=== PATIENT | female | born 1965 | race Two or more races ===

== ENCOUNTER 2018-05-01 13:03 | Day surgery (SDC) | payer OTHER ==
[~2018-05-01] VITALS: Ht 157.5 cm; Wt 84.3 kg
[2018-05-01 13:51] VITALS: Ht 157.5 cm; Wt 84.3 kg
[2018-05-01] MEDS ORDERED: ATORVASTATIN (15:35)
[2018-05-01] MEDS ORDERED: METFORMIN (15:35)
[2018-05-01] MEDS ORDERED: CYCLOBENZAPRINE (15:35)
[2018-05-01] MEDS ORDERED: DULOXETINE (15:35)
[2018-05-01] MEDS ORDERED: ZOLPIDEM TARTRATE (15:35)
[2018-05-01] MEDS ORDERED: METOPROLOL (15:35)
[2018-05-01] MEDS ORDERED: GABAPENTIN (15:35)
[2018-05-01] MEDS ORDERED: PROPANOLOL (15:35)
[2018-05-01] MEDS ORDERED: [UNRECOGNIZED DRUG - CODE] (15:35)
[2018-05-01] MEDS ORDERED: ADVIL (15:35)
[2018-05-01] MEDS ORDERED: MIDAZOLAM 1 MG/ML 2 ML INJ ONE (15:59)
[2018-05-01 16:08] VITALS: BP 161/94; RESP 15
[2018-05-01] MEDS ORDERED: LIDOCAINE 2% (SDV) 5 ML INJ ONE (16:14)
[2018-05-01] MEDS ORDERED: PROPOFOL 60 ML ONE (16:14)
--- NOTE | 2018-05-01 16:14 | PREAC ---
Date/Time of Note Date/Time of Note DATE: 05/01/18 TIME: 16:10 Anesthesia Eval and Record Evaluation Time Pre-Procedure Interview DATE: 05/01/18 TIME: 16:10 Age 52 Sex female NPO: 8 hrs Preoperative diagnosis abdominal pain, Colon screening Planned procedure EGD, Colonoscopy Past Medical History Past Medical History: Includes Cardio: HTN, Dyslipidemia Endo: Diabetes GI: Morbid obesity Heme: Anemia Psych: Depression, Anxiety Surgery & Anesthesia Issues No known issue Meds Anticoagulation: No Beta Leatha within 24 hr: Yes Reported Medications [Metoprolol] No Conflict Check 05/01/18 [Metformin] No Conflict Check 05/01/18 [Atorvastatin] No Conflict Check 05/01/18 [Advil] No Conflict Check 05/01/18 [Hydrocodone-Ibup] No Conflict Check 05/01/18 [Gabapentin] No Conflict Check 05/01/18 [Zolpidem Tartrate] No Conflict Check 05/01/18 [Cyclobenzaprine] No Conflict Check 05/01/18 [Propanolol] No Conflict Check 05/01/18 [Duloxetine] No Conflict Check 05/01/18 Meds reviewed: Yes Allergies Uncoded Allergies: PENICILLIN (Allergy, Unknown, 05/01/18) Allergies Reviewed: Yes Labs/Studies Labs Reviewed: Reviewed by anesthesiologist test: Negative Studies: ECG Pre-procedure Exam Last vitals Vital Signs Date Temp Pulse Resp B/P (MAP) Pulse Ox O2 O2 Flow FiO2 Time Delivery Rate 05/01/18 15 161/94 96 Room Air 16:08 (116) Airway: Adequate mouth opening, Adequate thyromental dist Mallampati: Mallampati III Teeth: Normal Lung: Normal Heart: Normal ASA Physical Status ASA physical status: 3 Emergency: None Planned Anesthetic General/MAC: MAC Planned Pain Management Parenteral pain med Pre-operative Attestations Prior to commencing anesthesia and surgery, the patient was re-evaluated, there was verification of: *The patient's identity *The results of appropriate recent lab work and preoperative vital signs *The above evaluation not changing prior to induction *Anesthetic plan, risk benefits, alternative and complications discussed with patient/family; questions answered; patient/family understands, accepts and wishes to proceed. SLIM RODRIGUEZ MD May 01, 2018 16:14
--- NOTE | 2018-05-01 17:01 | PAC ---
Date/Time of Note Date/Time of Note DATE: 05/01/18 TIME: 17:00 Post-Anesthesia Notes Post-Anesthesia Note Last documented vital signs Vital Signs Date Temp Pulse Resp B/P (MAP) Pulse Ox O2 O2 Flow FiO2 Time Delivery Rate 05/01/18 15 161/94 96 Room Air 16:08 (116) Activity: WNL Respiratory function: WNL Cardiovascular function: WNL Mental status: Baseline Pain reasonably controlled: Yes Hydration appropriate: Yes Nausea/Vomiting absent: Yes Comments BP:112/56, P:68, Spo2:100%, T:98,9 SLIM RODRIGUEZ MD May 01, 2018 17:01
[2018-05-01 17:30] VITALS: BP 128/87; PULSE 72; RESP 16
[2018-05-01] MEDS ORDERED: ACET325T33 PO (21:38)
== END 2018-05-01 17:55 | disposition home or self-care (01) ==
LOC: GIL 13:03
PROVIDERS: ATTEND Internal Medicine Gastroenterology
DX: K92.1 Melena (principal); K64.8 Other hemorrhoids; K29.70 Gastritis, unspecified, without bleeding
CPT/HCPCS: 43239; 45380; 82962; 88305; J2250; Z7610

== ENCOUNTER 2018-05-01 20:48 | Emergency (ER) | payer OTHER ==
[~2018-05-01] VITALS: Ht 165.1 cm; Wt 79.5 kg
[~2018-05-01 20:48] MED LIST: ADVIL; ATORVASTATIN; CYCLOBENZAPRINE; DULOXETINE; GABAPENTIN; METFORMIN; METOPROLOL; PROPANOLOL; ZOLPIDEM TARTRATE; [UNRECOGNIZED DRUG - CODE]
[2018-05-01 20:56] VITALS: Ht 165.1 cm; Wt 79.5 kg
--- NOTE | 2018-05-01 21:30 | ERD ---
ER Documentation Chief Complaint Chief Complaint anxiety HPI The patient is a 52-year-old female, presenting to the ER because of acute anxiety from the GI lab after she had EGD and colonoscopy. She was given Versed and propofol during the procedure. She has been resting comfortably and feels much better. She denies chest pain, dyspnea, abdominal pain, vomiting. She does not smoke, drink Medical history: Anxiety, depression, hypertension Past surgical history: Left knee arthroscopy ROS All systems reviewed and are negative except as per history of present illness. Medications Home Meds Active Scripts Acetaminophen* (Tylenol*) 325 Mg Tablet, 2 TAB PO Q6 PRN for PAIN AND OR ELEVATED TEMP, #20 TAB Prov:ANNETTE JONES MD 05/01/18 Reported Medications [Metoprolol] No Conflict Check 05/01/18 [Metformin] No Conflict Check 05/01/18 [Atorvastatin] No Conflict Check 05/01/18 [Advil] No Conflict Check 05/01/18 [Hydrocodone-Ibup] No Conflict Check 05/01/18 [Gabapentin] No Conflict Check 05/01/18 [Zolpidem Tartrate] No Conflict Check 05/01/18 [Cyclobenzaprine] No Conflict Check 05/01/18 [Propanolol] No Conflict Check 05/01/18 [Duloxetine] No Conflict Check 05/01/18 Allergies Allergies: Uncoded Allergies: PENICILLIN (Allergy, Unknown, 05/01/18) PMhx/Soc History of Surgery: Yes (KNEE) Anesthesia Reaction: No Hx Neurological Disorder: No Hx Respiratory Disorders: No Hx Cardiac Disorders: Yes (HTN, DYSLIPIDEMIA) Hx Psychiatric Problems: No Hx Miscellaneous Medical Probl: No Hx Alcohol Use: No Hx Substance Use: No Hx Tobacco Use: No Smoking Status: Current every day smoker Physical Exam Vitals Vital Signs Date Temp Pulse Resp B/P (MAP) Pulse Ox O2 O2 Flow FiO2 Time Delivery Rate 05/01/18 97.6 16 141/79 100 Room Air 21:52 (99) 05/01/18 97.7 71 133/67 100 20:56 (89) Physical Exam Const: No acute distress. Head: Atraumatic. Eyes: Normal Conjunctiva. ENT: Normal External Ears, Nose and Mouth. Neck: Full range of motion. No meningismus. Resp: Clear to auscultation bilaterally. Cardio: Regular rate and rhythm. Abd: Soft, non distended, normal bowel sounds, non tender. Skin: No petechiae or rashes. Back: No midline or flank tenderness. Ext: No cyanosis, or edema. Neur: Awake and alert. No focal deficit Psych: Normal Mood and Affect. Procedures/MDM MEDICAL MAKING DECISION: The patient is a 52-year-old female, presenting with acute anxiety attack, felt much better at this time. She is stable for outpatient follow-up The differential diagnoses considered include but are not limited to anxiety attack, panic attack, adverse side effect of medication Departure Diagnosis: Primary Impression: Anxiety attack Condition: Good Comments I discussed the findings with the patient. I advised the patient to follow-up with the primary physician in about 2-3 days, sooner if needed and return if any concern. Disclaimer: Inadvertent spelling and grammatical errors are likely due to EHR/dictation software use and do not reflect on the overall quality of patient care. Also, please note that the electronic time recorded on this note does not necessarily reflect the actual time of the patient encounter. ANNETTE JONES MD May 01, 2018 21:30
[2018-05-01] MEDS ORDERED: ACET325T33 PO (21:38)
[2018-05-01 21:52] VITALS: BP 141/79; RESP 16
== END 2018-05-01 21:53 | disposition home or self-care (01) ==
LOC: E/R 20:48
DX: F41.9 Anxiety disorder, unspecified (principal); I10 Essential (primary) hypertension; F17.210 Nicotine dependence, cigarettes, uncomplicated; R40.2142 Coma scale, eyes open, spontaneous, at arrival to emergency department; R40.2242 Coma scale, best verbal response, confused conversation, at arrival to emergency department; R40.2342 Coma scale, best motor response, flexion withdrawal, at arrival to emergency department; Z79.84 Long term (current) use of oral hypoglycemic drugs
CPT/HCPCS: 99282